=== PATIENT | female | born 1930 | race Caucasian/White ===

== ENCOUNTER 2017-01-28 09:57 | Inpatient (IN) | payer MEDICARE, MEDICAID ==
[2017-01-28 11:22] LABS: ALT (SGPT) 7 U/L (8-55); AST (SGOT) 13 U/L (5-34); Alkaline Phosphatase 72 U/L (40-150); Anion Gap 14 mmol/L (10-20); BUN (Urea Nitrogen) 52 mg/dL (9.8-20.1); Bilirubin, Total 0.3 mg/dL (0.2-1.2); Calc. Creatinine Clearance 0 mL/min (70-130); Calcium 9.3 mg/dL (7.8-10.44); Carbon Dioxide 26 mmol/L (23-31); Chloride 124 mmol/L (98-107); Estimated GFR-MDRD 37; Globulin 3.7 g/dL (2.4-3.5); Protein, Total 7.2 g/dL (6.0-8.3)
--- NOTE | 2017-01-28 11:27 | RAD ---
CHEST 1 VIEW: Date: 01/28/17 HISTORY: Cough. COMPARISON: None. FINDINGS: Exam is limited due to rightward patient rotation. There is a linear opacity in the ligula. There is also a right lower lobe air space opacity. No pneumothorax. Evidence of old injury in the right humeral neck. There is levoscoliosis of the tho racolumbar junction incompletely evaluated. There is lucency under the left hemidiaphragm. IMPRESSION: 1. Right lower lobe and lingular air space opacities may reflect atelectasis or infection versus sc ar. Given that there are no comparisons for evaluation, a follow-up 2 view is recommended. 2. Levoscoliosis centered at the thoracolumbar junction with potentially some height loss of the up per lumbar spine. 3. Lucency in the left hemidiaphragm may be sequelae of bowel interposition. Recommend correlation for lab values and abdominal pain. If there is clinical concern for pneumoperitoneum, abdomen radiog raph recommended. POS: [facility]
[2017-01-28 11:47] LABS: #Eosinphils 0.1 thou/uL (0.0-0.7); #Monocytes 0.5 thou/uL (0.11-0.59); #Neutrophils 6.4 thou/uL (1.40-6.50); %Basophils 0.2 % (0.0-1.0); %Eosinophils 0.6 % (0.0-10.0); %Lymphocytes 12.8 % (21.0-51.0); %Monocytes 6.4 % (0.0-10.0); Hematocrit 35.8 % (36.0-47.0); Mean Platelet Volume 7.7 fL (7.4-10.4); Red Blood Cell (RBC) Count 3.98 mill/uL (4.20-5.40)
[2017-01-28 11:55] LABS: PTT 28.6 SEC (22.9-36.1)
[2017-01-28 12:04] LABS: Troponin I 0.077 ng/mL (< 0.028)
[2017-01-28 12:10] LABS: Lactic Acid - Sepsis 1.2 mmol/L (0.5-2.2)
[2017-01-28] MEDS ORDERED: Sodium Chloride 0.9% 100 ML ONE (12:28)
[2017-01-28] MEDS ORDERED: Dextrose 5% in Water 1,000 ML IV SCH ×2 (12:45→15:30)
[2017-01-28 14:56] VITALS: BMI 17.2
[2017-01-28] MEDS ORDERED: FLU VACC TS2017-18 (>65YR) 0.5 ML SYRINGE IM ONE (15:45)
[2017-01-28 16:07] LABS: Troponin I 0.077 ng/mL (< 0.028)
[2017-01-28] MEDS: Cefepime 2 GM in Sodium Chloride 0.9% 100 ML IVPB SCH (16:56)
[2017-01-28] MEDS ORDERED: Vancomycin HCl 1 GM in Premix Bag 1 BAG IVPB SCH (17:00)
[2017-01-28] MEDS: Dextrose 5% in Water 1,000 ML IV SCH (17:01)
[2017-01-28 18:50] LABS: Anion Gap 12 mmol/L (10-20); BUN (Urea Nitrogen) 46 mg/dL (9.8-20.1); Calc. Creatinine Clearance 23 mL/min (70-130); Calcium 8.7 mg/dL (7.8-10.44); Carbon Dioxide 26 mmol/L (23-31); Chloride 123 mmol/L (98-107); Estimated GFR-MDRD 40
[2017-01-28 18:57] LABS: Troponin I 0.104 ng/mL (< 0.028)
--- NOTE | 2017-01-28 20:32 | RAD ---
ABDOMEN ONE VIEW: History: Air under the left diaphragm. FINDINGS: An nonspecific bowel gas pattern is present. There is scoliosis of the spine and degenerative change in the spine. There is a mild amount of fecal material in the rectum. The small loops are not abnor nicole dilated. Vascular calcifications are present. This is a portable supine exam and the possibility of free air cannot be completely excluded. A left femoral head prosthesis is present. POS: [facility]
[2017-01-28 22:38] LABS: Anion Gap 11 mmol/L (10-20); BUN (Urea Nitrogen) 43 mg/dL (9.8-20.1); Calc. Creatinine Clearance 23 mL/min (70-130); Calcium 8.7 mg/dL (7.8-10.44); Carbon Dioxide 24 mmol/L (23-31); Chloride 122 mmol/L (98-107); Estimated GFR-MDRD 41
[2017-01-29] MEDS: Dextrose 5% in Water 1,000 ML IV SCH (00:12)
[2017-01-29 02:29] LABS: Bilirubin Negative (Negative); Blood, Urine Trace (Negative); Glucose, Urine (Dipstick) Negative (Negative); Ketone, Urine Negative (Negative); Nitrite Negative (Negative); Protein, Urine (Dipstick) 100 mg/dL (Neg-Trace); Urobilinogen 0.2 mg/dL (0.2-1.0)
[2017-01-29 02:31] LABS: Bacteria/HPF None Seen HPF (None Seen); Hyaline Casts/LPF 4-6 HYALINE CAST LPF (0-3 Hyaline); Squamous Epithelial 0-3 HPF (0-3); WBC/HPF 21-50 HPF (0-3)
[2017-01-29 03:03] LABS: Renal Epithelial None Seen HPF (0-3); Transitional Epithelial NONE SEEN HPF (0-3); Yeast-All Forms None Seen HPF (None Seen)
[2017-01-29] MEDS: Cefepime 2 GM in Sodium Chloride 0.9% 100 ML IVPB SCH ×2 (04:14→15:51)
[2017-01-29 05:16] LABS: #Eosinphils 0.1 thou/uL (0.0-0.7); #Lymphocytes 0.8 thou/uL (1.20-3.40); #Monocytes 0.4 thou/uL (0.11-0.59); #Neutrophils 4.4 thou/uL (1.40-6.50); %Basophils 0.3 % (0.0-1.0); %Eosinophils 1.2 % (0.0-10.0); %Lymphocytes 14.3 % (21.0-51.0); %Monocytes 6.4 % (0.0-10.0); Hematocrit 31.2 % (36.0-47.0); Mean Platelet Volume 7.3 fL (7.4-10.4); Red Blood Cell (RBC) Count 3.48 mill/uL (4.20-5.40); White Blood Cell (WBC) Count 5.7 thou/uL (4.8-10.8)
[2017-01-29 05:36] LABS: Anion Gap 12 mmol/L (10-20); BUN (Urea Nitrogen) 33 mg/dL (9.8-20.1); Calc. Creatinine Clearance 26 mL/min (70-130); Calcium 8.3 mg/dL (7.8-10.44); Carbon Dioxide 20 mmol/L (23-31); Chloride 120 mmol/L (98-107); Estimated GFR-MDRD 48
--- NOTE | 2017-01-29 06:41 | HP ---
DATE OF ADMISSION: 01/28/2017 CHIEF COMPLAINT: Acute altered mental status. HISTORY OF PRESENT ILLNESS: This is an 86-year-old white female with end-stage dementia, who presents with several day history of worsening mental status and increased trouble with breathing. She has had some cough and they felt like there was right lower lobe pneumonia and she was placed on Z-DARA continued to worsen. The decision was made to directly admit her, presented to the ED and in the ED, she was found to be quite hypernatremic with acute kidney injury and was subsequently admitted to the ICU. REVIEW OF SYSTEMS: Limited because patient is end-stage Alzheimer's and is unable to speak. PAST MEDICAL HISTORY: Obtained through the family, eldest son and his at bedside, include hypertension, urinary incontinence, Alzheimer's. PAST SURGICAL HISTORY: No past surgical history. ALLERGIES: PENICILLIN ALLERGY, ZOFRAN, DILTIAZEM, and ZOLOFT. FAMILY HISTORY: Relatively unremarkable. SOCIAL HISTORY: Also relatively unremarkable. PHYSICAL EXAMINATION: VITAL SIGNS: Included temperature of 98.3, pulse 78, respirations 20, O2 sat 100% on 2 liters nasal cannula, BP 161/74. GENERAL: Patient is lying in bed, obviously quite underweight, stays in left lateral decubitus, and occasionally mumbles incoherently and stays in the position. HEENT: Eyes without icterus or injection. Dry mucous membranes in lips. CARDIOVASCULAR: Regular rate and rhythm without murmur on my exam. No peripheral edema. LUNGS: Clear to auscultation bilaterally without wheezes, rales, or rhonchi. No increased work of breathing for me. ABDOMEN: Soft, bowel sounds positive, but apparently tender to palpation. GENITOURINARY: Deferred. She is in a diaper. SKIN: Reportedly no sacral decubitus. We placed a Mepilex dressing prophylactically. NEUROLOGIC: She appears to move all extremities. MUSCULOSKELETAL: She has upper extremity contractures. PSYCHIATRIC: She is alert and oriented. She mumbles occasionally when spoken to. LABORATORY DATA: Include a white count of 8, hemoglobin of 11.3, MCV of 89.9, platelets 314. Coags with a PT of 15, which is high, but INR 1.2, PTT of 28.6. Chemistry: Sodium 160, potassium 4, chloride 124, bicarb 26, BUN 52, creatinine 1.27, glucose 100. Lactic acid 1.2. LFTs normal with the exception of ALT at 7. Albumin 3.5. Initial troponin 0.077, second as well as 0.077. IMAGING: Rotated film with poor inspiration frankly osteopenic with a history of what looks like a right humeral fracture in the past. No obvious mass, possibly right lower lobe infiltrate, but suspect this is a component of scarring. She does have lucency under left diaphragm, which has been noted by Radiology as well. ASSESSMENT AND PLAN: An 86-year-old female with, 1. Community-acquired pneumonia with a history of outpatient treatment with azithromycin. We will go ahead and start on vancomycin, cefepime, and Levaquin for double coverage. Blood cultures have been ordered. We will also check urinalysis, as I am not too sure of this pneumonia is really that prominent. We will also order a TTE. 2. Hypernatremia and dehydration, likely related to her underlying dementia, see below. She has already received a bolus. We will recheck sodium and gently replete D5 and avoid over repletion. 3. Acute kidney injury, likely secondary to above. We will manage as above and recheck BUN and creatinine in the morning. 4. Dementia. I feel this is end-stage, see below for disposition and frequent reorienting if possible and standard delirium precautions. 5. Lucency below the left hemidiaphragm seems to be interposed bowel, but the differential includes free air. We will pursue additional imaging, but please see disposition below. 6. Anemia. We will trend and workup as indicated. 7. Protein-calorie malnutrition with BMI of 17. Likely related to her end- stage dementia that will again discuss with family and if able to provide supplements and consult nutrition. 8. Disposition: The family including the eldest son who says he is the power of attorney general and wants the patient to be DNR, no compressions, no shocks, no intubation. They also desire to have a hospice consultation in light of the multiple comorbidities she has and her poor long-term outlook. I discussed that if she would stay in the ICU, we went into frequent lab draws including x- ray and potentially CT scan to rule out free air, and she had an elevated troponin, which would need to be followed, but feel like she is not eligible for additional intervention at this time. They voiced understanding of all this in detail and would prefer to wait an hour or 2 for any additional lab sticks or workups until they can meet with hospice and make a decision. We will honor these wishes of course after we ensure that the eldest son is the power of attorney general and then proceed as indicated. 9. Elevated troponin. 2/2 sepsis with decreased clearance. Await additional and repeat ECG. Gastrointestinal prophylaxis with diet and she has a recent negative swallow study per the family and deep venous thrombosis prophylaxis with heparin. MTDD
--- NOTE | 2017-01-29 06:51 | HP-2 ---
DATE OF ADMISSION: 01/28/2017 DATE OF SERVICE: 01/28/2017 COSIGNER: Narayan Brown MD CODE STATUS: DNR. PRIMARY CARE PHYSICIAN: Jose Church MD ATTENDING: Narayan Brown MD PGY1: Mer Crowley MD HISTORIAN: Son and intermediate. CHIEF COMPLAINT: Worsening cough and hypoxia. HISTORY OF PRESENT ILLNESS: This is an 86-year-old female with a past medical history of Alzheimer dementia, presents with a cough and difficulty breathing over the past several days. The patient failed outpatient management of pneumonia, onset azithromycin. The family described difficulty breathing at the intermediate as well as hypoxia today, which is an acute change from the patient's prior baseline and warranted a trip to the emergency department. Son endorses intermittent fevers as well. ER: The patient received Levaquin, vancomycin, and cefepime in the ER. PAST MEDICAL HISTORY: Alzheimer dementia, paroxysmal atrial fibrillation, hypertension, urinary incontinence, and arthritis. PAST SURGICAL HISTORY: Unknown. ALLERGIES: PENICILLIN. MEDICATIONS: Albuterol, Zofran, diltiazem 120 mg extended release, azithromycin , Zoloft 50 mg. FAMILY HISTORY: None. SOCIAL HISTORY: Denies tobacco, alcohol, or drug use. REVIEW OF SYSTEMS: GENERAL: Endorses fevers. RESPIRATORY: Positive for cough, congestion, and shortness of breath. CARDIOVASCULAR: No chest pain or palpitation. GASTROINTESTINAL: No nausea, vomiting, or diarrhea. GENITOURINARY: No rashes. PHYSICAL EXAMINATION: VITAL SIGNS: Blood pressure 167/80, pulse 85, respiratory rate 18, T-max 99.5, pulse ox 95% on 2 liters. Current weight 63.5 kilograms. GENERAL: Not alert and oriented to person, place, time, or situation. No apparent distress, thin, not interactive at all. EYES: PERRLA. EOMI. Conjunctivae within normal limits. ENT: Nasal mucosa within normal limits. Oropharynx within normal limits. Mucous membranes dry. CARDIOVASCULAR: Regular rate and rhythm. No murmurs, rubs, or gallops. RESPIRATORY: Decreased effort. Decreased breath sounds bilaterally. No crackles heard. SKIN: Dry mucous membranes. Dry upper and lower extremities with some peeling of her skin. ABDOMEN: Soft, nondistended, nontender to palpation. Bowel sounds in all 4 quadrants. EXTREMITIES: Mild edema in the lower extremities, nonpitting. MUSCULOSKELETAL: Decreased strength, thin, decreased range of motion. NEUROLOGIC: Difficult to assess as the patient is not alert and oriented to self, not following commands. LABORATORY DATA: CBC: White blood cell count 8, H\T\H 11.3 and 35.8, platelets 314. Chemistry: Sodium 160, potassium 4, chloride 124, bicarbonate 26, BUN 52, creatinine 1.37, calcium 9.3, AST 13, ALT 7, alkaline phosphatase 72, total bilirubin 0.3. Lactic acid 1.2. CK 63, CK-MB 2.3. Troponin 0.077. GFR 37. PT 15, INR 1.2, PTT 28.6. Chest x-ray, right lower lobe and lingular opacity. ASSESSMENT AND PLAN: An 86-year-old female with a past medical history of Alzheimer dementia presents with worsening cough and shortness of breath after failing outpatient management of pneumonia. The patient was admitted for pneumonia requiring IV antibiotics. 1. Aspiration Pneumonia. Differential to include pulmonary embolism but a low likelihood. The patient was started on vancomycin 1 gram q. 24 hours, Levaquin 750 mg q. 48 hours, cefepime 2 grams q. 12 hours, all of which were renally dosed as the patient's GFR is 37. The patient was started on 3 antibiotics due to concern for a multidrug-resistant organism as the patient failed outpatient management of pneumonia. 2. Hypernatremia. The patient was started on D5 water at 92 mL an hour, this rate was stopped and the patient's rate was increased to 110 mL an hour after calculating and incorporating the patient's free water deficit as well as accounting for additional losses. We will plan to recheck the patient's BMP serially every 4 hours to monitor improvement in hypernatremia, correcting slowly to not cause cerebral edema, correcting by about 10-12 mEq over the next day. We will also recheck a chest x-ray, CBC in the morning. We will wean off D5 once hypernatremia corrects. 3. Deep venous thrombosis prophylaxis. Lovenox at 40 subcutaneous for a GFR greater than 30. DISPOSITION AND LENGTH OF STAY: 3 days. Symptomatic medications will be provided. History and physical exam, as well as management, were discussed with Dr. Brown. RICKY
--- NOTE | 2017-01-29 08:13 | PDOC.FM ---
- Subjective Subjective: Improved this morning. Responds with yes or no. Waved bye when I left. - Objective MAR Reviewed: Yes Vital Signs & Weight: Weight Weight 44.271 kg Result Diagrams: 01/29/17 05:01 01/29/17 05:01 <Mer Crowley - Last Filed: 01/29/17 10:31> - Objective Vital Signs & Weight: Vital Signs (12 hours) Temp Pulse Resp BP Pulse Ox 01/29/17 08:00 98.4 F 74 18 169/74 H 98 01/29/17 04:00 98.5 F 77 18 160/82 H 98 01/29/17 00:00 98.4 F 87 18 171/68 H 96 Weight Weight 97 lb 9.6 oz I&O: 01/28/17 01/29/17 01/30/17 06:59 06:59 06:59 Intake Total 1350 Balance 1350 Result Diagrams: 01/29/17 05:01 01/29/17 05:01 <Miguel Garcia - Last Filed: 01/29/17 10:38> Phys Exam - Physical Examination HEENT: PERRLA, moist MMs Respiratory: no wheezing, no rales, clear to auscultation bilateral decreased breath sounds bilaterally Cardiovascular: RRR, no significant murmur Gastrointestinal: soft, non-tender, no distention Musculoskeletal: no edema, pulses present Neurological: non-focal Deviation from normal: not alert and oriented to self Skin: no rash <Mer Crowley - Last Filed: 01/29/17 10:31> Dx/Plan (1) Pneumonia Code(s): J18.9 - PNEUMONIA, UNSPECIFIED ORGANISM Status: Acute (2) Chronic hypernatremia Code(s): E87.0 - HYPEROSMOLALITY AND HYPERNATREMIA Status: Acute (3) HCAP (healthcare-associated pneumonia) Code(s): J18.9 - PNEUMONIA, UNSPECIFIED ORGANISM Status: Acute (4) Elevated troponin Code(s): R74.8 - ABNORMAL LEVELS OF OTHER SERUM ENZYMES Status: Acute - Plan Plan: 86 yo female with pmhx of alz dementia presents with hypoxia and cough after failed outpatient management for pneumonia admitted for LLL pneumonia and hypernatremia LLL pneumonia- vanc, cefepime, levquin renally dosed Hypernatremia 160-->148 d5w stopped switched to NS @75ml/hr Elevated troponins-will order EKG, however family desires hospice for pt. Pt's family would like hospice upon discharge. <Mer Crowley - Last Filed: 01/29/17 10:31> Attending Addendum - Attending Addendum I personally evaluated the patient and discussed the management with Dr. Crowley I agree with the History, Examination, Assessment and Plan documented above with any addition or exceptions noted below. Mrs. Pedroza is a skilled nursing resident who presents with bilateral lower lobe pneumonia. She is much improved overnight after hydration and IV antibiotics. I think this is likely aspiration. When we transition to oral meds, we need to cover anaerobes. <Miguel Garcia - Last Filed: 01/29/17 10:38>
[2017-01-29] MEDS ORDERED: Sodium Chloride 0.9% 1,000 ML IV SCH (08:15)
--- NOTE | 2017-01-29 08:58 | RAD ---
PORTABLE CHEST: History: Pneumonia. Comparison: 01-28-17 FINDINGS: Opacities in both lung bases are seen consistent with atelectasis and/or infiltrates. Upper lung zon es remain clear. Heart is mildly enlarged. Deformity of the right humeral head. IMPRESSION: Bibasilar infiltrates not significant changed from yesterday. POS: [facility]
[2017-01-29] MEDS ORDERED: Enoxaparin Sodium 40 MG/0.4 ML SYRINGE SC SCH (09:00)
--- NOTE | 2017-01-29 15:02 | EKG ---
Test Reason : Blood Pressure : / mmHG Vent. Rate : 078 BPM Atrial Rate : 078 BPM P-R Int : 000 ms QRS Dur : 078 ms QT Int : 400 ms P-R-T Axes : 000 -08 169 degrees QTc Int : 456 ms Sinus rhythm with Premature atrial complexes with Abberant conduction Voltage criteria for left ventricular hypertrophy Nonspecific ST and T wave abnormality Anteroseptal infarct , age undetermined cannot be excluded Abnormal ECG Confirmed by PAYTON VERNON ([id number]) on 01/29/2017 3:02:14 PM Referred By: ADRIAN Confirmed By:PAYTON VERNON
--- NOTE | 2017-01-29 15:18 | PQF ---
Date: 01-29-17 ATTN: DR. MARGE TRINIDAD / DR. DINA CAMPBELL Please exercise your independent, professional judgment in responding to the clarification form. Clinical indicators are provided on the bottom of this form for your review Please check appropriate box(s): [ ] Protein Calorie Malnutrition: [ ] Mild [ ] Moderate [ ] Severe [ ] Other Malnutrition (please specify) __ [ ] Other diagnosis [ ] Unable to determine In addition, please specify: Present on Admission (POA): [ ] Yes [ ] No [ ] Unable to determine CLINICAL INDICATORS - SIGNS / SYMPTOMS / LABS BMI: 17.2 H&P: PROTEIN CALORIE MALNUTRITION NURSE ASSESSMENT 01-29-17: GAIT: CAN NOT STAND, CAN NOT WALK, 2 PERSON ASSIST, TOTAL ASSISTANCE, HX OF CVA, BLE CONTRACTURES RISK FACTORS: NURSE ASSESSMENT 01-29-17: PT UNABLE TO COMPREHEND, NURSE ASSESSMENT 01-29-17: GAIT: CAN NOT STAND , CAN NOT WALK, 2 PERSON ASSIST, TOTAL ASSISTANCE, HX OF CVA, BLE CONTRACTURES TREATMENT: COMMUNICATIONS PROJECT MANAGER CONSULT, PALLIATIVE CARE CONSULT, SPEECH CONSULT ORDERED ENSURE ELIVE BID (This form is maintained as a part of the permanent medical record) 2015 [employer] All Rights Reserved [email or web address] Office: [phone] [facility]ROAT HOSPITALVickie
--- NOTE | 2017-01-29 15:27 | CON ---
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 She presented with progressive confusion over several days. She subsequently was ad mitted. She is nonverbal. PAST MEDICAL HISTORY: Remarkable for hypertension and dementia. ALLERGIES: She reports an intolerance, PENICILLIN, ZOFRAN, CARDIZEM and ZOLOFT. FAMILY HISTORY: Negative for lung disease at an early age. SOCIAL HISTORY: Not obtainable. REVIEW OF SYSTEMS: Not obtainable. There was no family in the room. PHYSICAL EXAMINATION: GENERAL: She is extremely frail appearing. She is nonverbal. VITAL SIGNS: She is afebrile, heart rate is in the 70s, respiratory rate is 18, oximetry is 98, blo od pressure 116/74. HEENT: Sclerae is anicteric. Extraocular movements are full. NECK: Supple. She has extreme muscle wasting. CHEST: Rubs are easily palpable. She has bilateral equal breath sounds. HEART: Regular rhythm. Abdomen: Soft and nontender with no guarding. EXTREMITIES: Without asymmetry. LABORATORY DATA: White count 5.7, hemoglobin 9.7, platelets 228. Sodium 148, potassium 3.7, chlori de 120, bicarbonate 20, BUN 33, creatinine 1.09. Sodium was 157 on admission. IMPRESSION: Intravascular volume depletion secondary to advanced dementia. I reviewed her chest ra diograph. I suspect the abnormalities in both bases are secondary to mucous plugging and I suspect she does not strong enough to cough up her secretions. I truly believe she is near the end of her l aris. She is so cachectic, you can see her tendons in her hands through her skin. Hospice would be appropriate in this setting in my opinion, try to simplify her antimicrobial therapy as quickly as tiffanie christensen. She can be transferred out to the Intermediate Care Unit.
[2017-01-29 16:15] VITALS: BP 157/84; TEMP 98.3
== END 2017-01-29 18:05 | disposition hospice, home (50) | DRG 178 ==
LOC: ERS 09:57 → IMCU/EMU 12:36
PROVIDERS: ADMIT Internal Medicine; ATTEND Internal Medicine
DX: J69.0 Pneumonitis due to inhalation of food and vomit (principal); E87.0 Hyperosmolality and hypernatremia; N17.9 Acute kidney failure, unspecified; E46 Unspecified protein-calorie malnutrition; G30.9 Alzheimer's disease, unspecified; E86.0 Dehydration; I48.0 Paroxysmal atrial fibrillation; F02.80 Dementia in other diseases classified elsewhere, unspecified severity, without behavioral disturbance, psychotic disturbance, mood disturbance, and anxiety; Z68.1 Body mass index [BMI] 19.9 or less, adult; I10 Essential (primary) hypertension; Z88.0 Allergy status to penicillin; Z66 Do not resuscitate; D64.9 Anemia, unspecified; Z51.5 Encounter for palliative care; Y95 Nosocomial condition
CPT/HCPCS: 36415; 71010; 74000; 80048; 80053; 81001; 82550; 82553; 83605; 84484; 85025; 85610; 85730; 87040; 87086; 93005; 93010; 96365; 96368; 96375; G8996-GN-CM; G8997-GN-CM; J0692; J1956; J7050; J7070